=== PATIENT | male | born 1980 | race Caucasian/White ===

== ENCOUNTER 2023-01-16 14:30 | Emergency (ER) | payer BC ==
[~2023-01-16] VITALS: Ht 188 cm; Wt 143.4 kg
[2023-01-16 14:33] VITALS: BP 135/73; TEMP 97.3; O2SAT 98
== END 2023-01-16 19:23 | disposition home or self-care (01) ==
LOC: M ED 14:30
DX: M79.605 Pain in left leg (principal); I10 Essential (primary) hypertension; F41.9 Anxiety disorder, unspecified; F32.A Depression, unspecified